=== PATIENT | female | born 1970 | race Caucasian/White ===

== ENCOUNTER 2017-01-08 16:16 | Inpatient (IN) | payer BC, OTHER ==
--- NOTE | ~2017-01-08 | EKG ---
PATIENT: DARCIE AVITIA UNIT #: [id number] Ventricular Rate: 92 BPM Atrial Rate: 92 BPM P-R Interval: 210 ms QRS Duration: 176 ms Q-T Interval: 442 ms QTC Calculation(Bezet): 546 ms P [place]: 57 degrees Calculated R [place]: -21 degrees Calculated T [place]: 48 degrees Diagnosis Line: Sinus rhythm with 1st degree A-V block Diagnosis Line: Possible Left atrial enlargement Diagnosis Line: Left bundle branch block Diagnosis Line: Abnormal ECG Diagnosis Line: When compared with ECG of 24-JUN-2009 15:58, Diagnosis Line: Left bundle branch block is now Present Diagnosis Line: Minimal criteria for Anterior infarct are no Diagnosis Line: longer Present Diagnosis Line: Confirmed by LETICIA GARCIA MD ([id number]) on 01/09/2017 Diagnosis Line: 5:46:43 AM INTERPRETING MD: RADHA UMAÑA
--- NOTE | ~2017-01-08 | EKG ---
PATIENT: DARCIE AVITIA UNIT #: [id number] Ventricular Rate: 62 BPM Atrial Rate: 62 BPM P-R Interval: 256 ms QRS Duration: 178 ms Q-T Interval: 566 ms QTC Calculation(Bezet): 574 ms P [place]: 38 degrees Calculated R [place]: -38 degrees Calculated T [place]: 130 degrees Diagnosis Line: Sinus rhythm with 1st degree A-V block Diagnosis Line: Left axis deviation Diagnosis Line: Left bundle branch block Diagnosis Line: Abnormal ECG Diagnosis Line: When compared with ECG of 08-JAN-2017 16:00, Diagnosis Line: Vent. rate has decreased BY 30 BPM Diagnosis Line: T wave inversion now evident in Lateral leads Diagnosis Line: Confirmed by LETICIA GARCIA MD ([id number]) on 01/10/2017 Diagnosis Line: 7:05:43 PM INTERPRETING MD: RADHA UMAÑA
--- NOTE | ~2017-01-08 | CR72 ---
[facility] A Service of [facility] [place] RADIOLOGY TEXT RESULTS PATIENT: DARCIE AVITIA LOCATION: [facility] 569-01 : [birth year] UNIT #: [id number] AGE: [address]: Darrion Bianchi MD SEX: F ORDER DR: [id number] [facility] [address] [facility]. [place], [place] [address] [id number] MR#: [id number] Acc #: [id number] NAME: DARCIE AVITIA : 1970 SEX: F STUDY DATE/TIME: 01/08/2017 17:06 UNIT: [facility] ROOM: [facility] STUDY DESCRIPTION: CR Chest Single View Portable Attending Physician: Darrion Bianchi M.D. Ordering Physician: Florencia Denson M.D. Primary Care Physician: Primary Care Physician No MEDICAL IMAGING REPORT This report is preliminary unless electronic signature is present EXAM Portable chest 1 view, 01/08/2017 COMPARISON 06/24/2009 CLINICAL HISTORY Chest pain, short or air, cough and congestion for 1 day. FINDINGS There is [id number] cardiomegaly, but there is no infiltrate, effusion, pneumothorax or specific nodule. Dictated by... Scott Peterson M.D. THIS IS AN ELECTRONICALLY VERIFIED REPORT Scott Peterson M.D. at 01/09/2017 3:54 PM JOSE A/dl TD: 01/08/2017 21:44 JOB #: [id number] MEDICAL IMAGING REPORT Page 1 of 1 COPY
--- NOTE | ~2017-01-08 | A ---
[facility] Nutrition Therapy DATE: 01/10/17 Patient: DARCIE AVITIA Physician: MONIQUE Address: [email or web address] Room/Bed: [address] [place] [address], [facility], Zip: [place] [phone] Admit Date: 01/08/17 Date of : [birth year] Height: 5 6 Weight: 198 90.2 NUTRITIONAL ASSESSMENT: REASON: CONSULT RE: DM EDUCATION PT IS 46 Y.O. FEMALE ADMITTED FOR ABNORMAL LABS HT: 5'6", WT: 197# (90 KG), BMI: 31.8 RD PROVIDED WRITTEN AND VERBAL CC DIET EDUCATION. RD PROVIDED LIST OF FOODS TO AVOID/LIMIT AND FOODS TO EAT MORE OFTEN. RD ALSO EMPHASIZED IMPORTANCE OF CONSUMING CONSISTENT BALANCED MEALS + LIMITING SUGAR-SWEETENED BEVERAGES. PT REPORTS DRINKING DIET SODA DAILY, WILLING TO CUT BACK AND DRINK MORE WATER. PT ALSO STATES SHE LOVES POTATOES AND PASTA. RD EMPHASIZED IMPORTANCE OF PORTION CONTROL. PT DEMONSTRATED UNDERSTANDING OF THE TOPIC. PT REPORTED NO DIET QUESTIONS AT THIS TIME. RD TO REMAIN AVAILABLE. RD NOTIFIED PT ABOUT [facility] FOR [facility]IDE REFERRAL. RECOMMENDATIONS: 1. ONCE MEDICALLY FEASIBLE, ADVANCE DIET TOLERATED TO CC+HH -ENCOURAGE COMPLIANCE OF CURRENT DIET ORDER 2. RE-CONSULT RD IF FURTHER DIET EDUCATION REQUESTED/NEEDED RD WILL F/U PER PROTOCOL Respectfully, TREVON BARGER MS, RD, LD Food and Nutrition[facility] cc: client file
--- NOTE | ~2017-01-08 | CO ---
Unit #: [id number] #: [id number] Patient: DARCIE AVITIA [id number] [address] [address] [id number] I MR#: [id number] NAME: DARCIE AVITIA ROOM: 569 Age: 46 Sex: F Admission Date: 01/08/2017 : 1970 Attending Physician: Darrion Bianchi M.D. Primary Care Physician: No Primary Care Physician CONSULTATION REPORT REASON FOR CONSULTATION Management of diabetes. HISTORY OF PRESENT ILLNESS The patient is a 46-year-old female with history of hypertension, hyperlipidemia, diabetes for 15 years on Metformin, Glyburide and hypothyroidism, admitted to the Cardiology Service with chest pain with a non-ST elevation VA. The patient has diabetes for 15 years and was well controlled on Metformin and Glyburide until last March. The patient lost insurance and then the patient was off of the medications. The patient was found to have uncontrolled diabetes at the time of admission with the sugars in the range of three hundreds. The patient's hemoglobin A1C is 10.9. 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 The patient denies any complications from the diabetes in the past. PAST MEDICAL HISTORY History of hypertension, hyperlipidemia, diabetes, hypothyroidism. PAST SURGICAL HISTORY History of oophorectomy right side, , hysterectomy. SOCIAL HISTORY No history of smoking, alcohol or illicit drug abuse. FAMILY HISTORY Reviewed and none. ALLERGIES Sulfa. HOME MEDICATIONS 1. Glucophage. 2. Neurontin. 3. Glucotrol. 4. Topamax. 5. Percocet. 6. Hydrocodone. 7. Zithromax. REVIEW OF SYSTEMS A 14-point review of systems was performed and only pertinent positives are described above. Remaining are negative. Unit #: [id number] #: [id number] Patient: DARCIE AVITIA PHYSICAL EXAMINATION GENERAL APPEARANCE: The patient is lying on bed, not in acute distress. VITAL SIGNS: Temperature 97.6. Pulse 71. Respiration 22. Blood pressure 133/95. HEENT: Head: Atraumatic, normocephalic. ENT: Pupils equal, round and reactive to light and accommodation. Extraocular movements are intact. NECK: Supple. LUNGS: Clear to auscultation bilaterally. HEART: Regular rate and rhythm. Positive for murmur. ABDOMEN: Soft. Positive bowel sounds. EXTREMITIES: No cyanosis. No clubbing. NEUROLOGIC: Alert, awake, oriented. No gross focal motor deficit. DIAGNOSTIC STUDIES LABORATORY: pH 7.4, pCO2 37, pO2 79.2, bicarb 23.6. Glucose 325, BUN 22, creatinine 0.8, sodium 135, potassium 4.1, chloride 99, bicarb 26, calcium 9.3, total protein 8, AST 20, ALT 31, alkaline phosphatase 98. Troponin 0.56. Hemoglobin A1C 10.9. Cholesterol 206, triglycerides 218, LDL 130, HDL 32. WBC 12.2, hemoglobin 15.1, hematocrit 49.3, platelets 240. IMAGING: Chest x-ray shows there is mild to moderate cardiomegaly but there is no infiltrate, effusion, pneumothorax or specific nodule. ASSESSMENT 1. Non-ST elevation VA. 2. Uncontrolled diabetes. 3. Obesity. PLAN The patient is awaiting the cardiac cath tomorrow and continue with the medial management and started the sliding scale and restart the Glucophage and Glyburide at the time of discharge. Continue with the statin and further recommendations will follow as more lab results are available. Dictated by... Sharifa Ty TD: 01/09/2017 12:51 JOB #: [id number] CONSULTATION REPORT Page 1 of 1 X X CONSULTATION REPORT
--- NOTE | ~2017-01-08 | HP ---
Unit #: [id number] #: [id number] Patient: DARCIE AVITIA [id number] [address] [place], [place] [address] [id number] I MR#: [id number] NAME: DARCIE AVITIA ROOM: 569 Age: 46 Sex: F Admission Date: 01/08/2017 : 1970 Attending Physician: Darrion Bianchi M.D. Primary Care Physician: Emily Arredondo M.D. HISTORY AND PHYSICAL HISTORY OF PRESENT ILLNESS This is a 46-year-old white female who went for a job physical and was found to have elevated blood pressure and glucose levels. She was told to go to [facility] for further evaluation. At the [facility], her blood pressure was 142/100 mmHg. Blood glucose per labs was 444. She was then sent to the emergency room for further management. The patient has known hypertension and diabetes, but because of no insurance and limited resources, she stopped taking all her medications in March 2016. She said she has frequent "panic attacks" where she has shortness of breath, dizziness, and substernal chest tightness that is nonradiating to her neck, arm, or jaw. She reports dyspnea on extreme exertion. She has occasional leg edema. She has been under "a lot of" stress recently. She has been depressed about her father's . Her last episode of chest pain was this morning. She came to the emergency room for evaluation where her initial troponin was 0.21. Electrocardiogram showed a left bundle branch block which is new from previous EKG in 2008. Chest x-ray denoted cardiomegaly but no heart failure. Her electrolytes were within normal limits. Blood glucose was elevated at 325. She has had no previous cardiac history or workup. Her risk factors include hypertension, hyperlipidemia, and diabetes. No history of nicotine abuse. PAST MEDICAL HISTORY 1. Hypertension. 2. Hyperlipidemia. 3. Diabetes mellitus type 2. 4. Hypothyroidism with multinodular goiter. 5. Panic attacks. 6. Depression. 7. Obesity. 8. Lifelong nonsmoker. PAST SURGICAL HISTORY 1. Hysterectomy with oophorectomy. 2. section. SOCIAL HISTORY The patient is . 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 She has never smoked and denies illicit drug and alcohol use. FAMILY HISTORY Father at age 79 from congestive heart failure. Mother from a stroke. Unit #: [id number] #: [id number] Patient: DARCIE AVITIA. HOME MEDICATIONS No current medications. REVIEW OF SYSTEMS CONSTITUTIONAL: Negative for fever or chills. Reports no weight gain or weight loss. HEENT: No headache, hearing or vision changes, or difficulty with swallowing. Positive for dizziness. CARDIOVASCULAR: Has chest discomfort as described in the History of Present Illness. Has occasional palpitations. No paroxysmal nocturnal dyspnea or orthopnea. Denies syncope or near syncope. RESPIRATORY: Positive for dyspnea on exertion. No cough or hemoptysis. GASTROINTESTINAL: No abdominal pain, nausea, or vomiting. No constipation or melena. EXTREMITIES: Negative for lower extremity edema. PHYSICAL EXAMINATION VITAL SIGNS: Blood pressure 154/110, heart rate 100, and temperature 98.2. BMI 21. GENERAL: This is a pleasant, 46-year-old, mildly obese young female who is in no acute respiratory distress. NEUROLOGIC: She is awake, alert, and oriented. There are no focal weaknesses. NECK: Trachea is midline. No thyromegaly or lymphadenopathy. No jugular venous distention. HEART: S1 and S2 with heart sounds normal. No murmurs and no rubs or clicks. Regular rate and rhythm. LUNGS: Clear to auscultation without rales, rhonchi, or wheezing. ABDOMEN: Soft and nontender with bowel sounds present. EXTREMITIES: Without leg edema. SKIN: Warm and dry. DIAGNOSTIC STUDIES LABORATORY: Hemoglobin 16.1, hematocrit 49.3, platelet count 240,000, and white count 12.2. Sodium 135, potassium 4.1, BUN 22, creatinine 0.8, and glucose 325. TSH 0.75. Troponin 0.21. IMAGING: Chest x-ray shows cardiomegaly but no active disease. CARDIOLOGY: EKG normal sinus rhythm with a rate of 92 beats per minute with left bundle branch block, left (1) axis deviation, poor R-wave progression, and first degree AV block. IMPRESSION 1. Acute coronary syndrome. 2. Uncontrolled hypertension. 3. Uncontrolled diabetes mellitus type 2. 4. New left bundle branch block. 5. Obesity. 6. History of hypothyroidism. PLAN 1. The patient's chest pain may be ischemic in origin. Will continue to trend cardiac enzymes and troponin to further rule out myocardial Unit #: [id number] #: [id number] Patient: DARCIE AVITIA infarction. 2. Electrocardiogram shows new left bundle branch block not seen on previous EKG. May be rate related. 3. Cardiomegaly is noted on chest x-ray but no evidence of heart failure. 4. Recommend cardiac catheterization to evaluate coronary anatomy. This has been discussed with the patient and she is agreeable. 5. Anticoagulate with aspirin and Lovenox. 6. Control blood pressure with beta kellen and DORCAS inhibitor. 7. Will start her on sliding scale insulin. Will have HIPS to see the patient for diabetes management. 8. Lipid profile will be obtained. Will start on lipid-lowering agent with high-intensity statin. 9. Will obtain echocardiogram to evaluate left ventricular systolic function given cardiomegaly on chest x-ray. Dictated by Hoang Jaramillo A.P.R.N. for Sharifa Cool/alexander TD: 01/09/2017 18:44 JOB #: [id number] HISTORY AND PHYSICAL Page 1 of 1 X Hoang Jaramillo APRN HISTORY AND PHYSICAL
--- NOTE | ~2017-01-08 | DS ---
Unit #: [id number] #: [id number] Patient: DARCIE AVITIA [id number] [address] [address] [id number] I MR#: [id number] NAME: DARCIE AVITIA ROOM: 569 Age: 46 Sex: F Admission Date: 01/08/2017 : 1970 Discharge Date: 01/11/2017 Attending Physician: Darrion Bianchi M.D. Primary Care Physician: No Primary Care Physician DISCHARGE SUMMARY DISCHARGE DIAGNOSES 1. Non-ST elevation myocardial infarction with peak troponin of 0.56. 2. Nonischemic cardiomyopathy with an ejection fraction of less than 10%. 3. A 2-D echocardiogram, 01/09/2017, shows an ejection fraction equal to or less than 10%. Mild to moderately dilated left atrium. Mild mitral regurgitation. Mild tricuspid regurgitation. Right ventricular systolic pressure of 45 mmHg. 4. Cardiac catheterization, 01/10/2017, which shows angiographically normal coronaries and ejection fraction of 10 to 15%. Severe global hypokinesis of the left ventricle. 5. Uncontrolled essential hypertension. 6. Hyperlipidemia. 7. Uncontrolled diabetes mellitus type 2. 8. New left bundle branch block. 9. Escherichia coli urinary tract infection. 10. Obesity. 11. Hypomagnesemia. DISCHARGE MEDICATIONS 1. Lopressor 50 mg b.i.d. 2. Lipitor 20 mg q.h.s. 3. Lisinopril 20 mg daily. 4. Levemir 5 units subcu b.i.d. 5. Aspirin 81 mg daily. 6. Spironolactone 12.5 mg b.i.d. 7. Lasix 20 mg daily. 8. Keflex 500 mg b.i.d. x7 days. HOSPITAL COURSE This is a 46-year-old white female who went for a job physical and was found to have elevated blood glucose and hypertension. She was sent to the emergency room for evaluation where she had an initial troponin of 0.21. Upon further questioning, the patient had what she thought was panic attacks where she had shortness of breath and chest tightness. Her troponin further josette to a peak of 5.6. We ruled her in for an acute non-ST elevation myocardial infarction. Her EKG showed left bundle branch block that was not cited on EKG in 2008. The patient stopped taking her antihypertensive medications as well as her diabetic medications in March of last year because of loss of insurance. She was started on a beta kellen, DORCAS inhibitor, aspirin and Lovenox. Fasting lipid profile was obtained which showed the patient to have elevated cholesterol and triglycerides level. She was started on high intensity high dose statin. Cardiac catheterization was recommended for which the patient was agreeable. Prior to the cardiac catheterization, echocardiogram revealed Unit #: [id number] #: [id number] Patient: DARCIE AVITIA severe left ventricular systolic dysfunction where her ejection fraction was less than 10%. She had no evidence of acute heart failure on examination. There was mild elevation of BNP of 532. She was started on fluid restriction with a 2 g sodium diet. Cardiac catheterization revealed no coronary artery disease. Her nonischemic cardiomyopathy is most likely secondary to uncontrolled hypertension. Her blood pressure stabilized with the addition of antihypotensive medicines. On admission, glucose levels were elevated, 325. The patient was started on sliding scale insulin initially. HIPS saw the patient for diabetes management. Levemir 5 units subcu was given b.i.d. Sliding scale was continued. Her blood glucose levels stabilized. She was also found to have evidence of urinary tract infection per UA. Cultures were positive for E. coli. Urinary tract infection was treated with IV Rocephin. At discharge, the patient will continue on Keflex 500 mg b.i.d. for seven days. Diabetic diet instructions were given to the patient by the electronic device monitor. Today, the patient is doing well. Her right radial site is feeling well. She has no shortness of breath. Magnesium level slightly low at 1.7. She will be treated as an outpatient for magnesium replacement. She is to start on daily regimen with Lasix. She remains euvolemic. The oncology social work is to see the patient prior to discharge to obtain the cost of medicine and provide the patient a list of PCPs to follow. Nursing staff has given instructions of self administration of insulin. Her heart rate and blood pressure remain stable. She is stable for discharge today. PHYSICAL EXAMINATION VITAL SIGNS: Blood pressure 143/104. Heart rate 72. Temperature 98.2. CHEST: With diminished breath sounds, otherwise, clear. HEART: S1, S2 with regular rate and rhythm. ABDOMEN: Soft with bowel sounds present. EXTREMITIES: Without leg edema. Right radial without hematoma or bruising. DIAGNOSTIC STUDIES LABORATORY: Glucose 152, BUN 17, creatinine 0.7, sodium 138, potassium 4.5. Cholesterol 206, triglycerides 218, LDL 130, HDL 32. TSH 0.5. Urine culture positive for E. coli. CONSULTATIONS HIPS for medical management. DISCHARGE INSTRUCTIONS 1. The patient will be discharged home today. 2. Follow up with a PCP of her choice in five to seven days. 3. Follow up with Dr. Bianchi on January at 2:15 p.m. 4. The patient will continue on fluid and sodium restriction with 1800 mL per day fluid restriction, 2 g sodium diet. 5. CHF education has been given. 6. Cardiac Rehab saw the patient prior to discharge and she is scheduled for orientation on 01/26/2017 at [facility]. 7. Continue magnesium oxide for 48 hours then discontinue. 8. Continue oral diuretics with Aldactone and furosemide. She will be discharged home on beta kellen, DORCAS inhibitor and statin. 9. The patient has been instructed self administration of insulin. Levemir will be continued at home. The oncology social work to confirm ability to afford Levemir prior to discharge. No Metformin secondary Unit #: [id number] #: [id number] Patient: DARCIE AVITIA to 48 hours post cath. 10. Keflex will be continued for seven days and then discontinued for urinary tract infection. Dictated by... Honag Jaramillo A.P.R.N. for Sharifa Cool/cheryl TD: 01/13/2017 13:27 JOB #: [id number] DISCHARGE SUMMARY Page 1 of 1 X Hoang Jaramillo APRN DISCHARGE SUMMARY
--- NOTE | ~2017-01-08 | EKG ---
PATIENT: DARCIE AVITIA UNIT #: [id number] Ventricular Rate: 64 BPM Atrial Rate: 64 BPM P-R Interval: 246 ms QRS Duration: 182 ms Q-T Interval: 528 ms QTC Calculation(Bezet): 544 ms P [place]: 45 degrees Calculated R [place]: -33 degrees Calculated T [place]: 127 degrees Diagnosis Line: Sinus rhythm with 1st degree A-V block Diagnosis Line: Left axis deviation Diagnosis Line: Left bundle branch block Diagnosis Line: Abnormal ECG Diagnosis Line: When compared with ECG of 09-JAN-2017 05:46, Diagnosis Line: (unconfirmed) Diagnosis Line: No significant change was found Diagnosis Line: Confirmed by LETICIA GARCIA MD ([id number]) on 01/10/2017 Diagnosis Line: 10:47:39 PM INTERPRETING MD: RADHA UMAÑA
[2017-01-08 16:00] LABS: BASOPHIL# 0.1 X10e3 (0-0.3); BASOPHIL% 0.6 % (0-2.5); EOSINOPHIL# 0.1 X10e3 (0-0.7); EOSINOPHIL% 0.8 % (0.0-7.0); HEMATOCRIT 49.3 % (35.0-45.0); HEMOGLOBIN 16.1 gm/dL (12.0-16.0); LYMPHOCYTE# 2.6 X10e3 (1.0-3.5); LYMPHOCYTE% 21.1 % (17.0-45.0); MEAN CELL VOLUME 81.9 FL (83-96); MEAN CORPUSCULAR HEMOGLOBIN 26.8 PG (28-34); MEAN CORPUSCULAR HGB CONC 32.7 g/dL (30-36); MEAN PLATELET VOLUME 10.2 FL (6.5-11.5); MONOCYTE# 0.8 X10e3 (0-1.0); MONOCYTE% 6.1 % (3.0-12.0); NEUTROPHIL# 8.7 X10e3 (1.5-7.1); NEUTROPHIL% 71.4 % (40-75); PLATELET COUNT 240 X10e3 (140-420); RED BLOOD COUNT 6.02 X10e (3.90-5.30); RED CELL DISTRIBUTION WIDTH 14.3 % (11.0-15.5); WHITE BLOOD COUNT 12.2 X10e3 (4.0-10.5)
[2017-01-08 16:01] LABS: DIFF IND NO
[~2017-01-08 16:16] MED LIST: ANSAID100 MG PO; GLUCOTROL PO; HYDROCODONE-GU480 ML PO; METFORMIN PO; NEURONTIN PO; PERCOCET5/325 PO; TOPAMAX PO; ZITHROMAX PO
[2017-01-08 16:21] LABS: ARTERIAL BLD GAS O2 SATURATION 95.1 % (90.0-100.0); ARTERIAL BLOOD GAS CARBOXY HB 0.8 %sat (0.0-9.0); ARTERIAL BLOOD GAS HCO3 23.6 mmol/L; ARTERIAL BLOOD GAS MET HB 0.6 %sat (0.0-2.0); ARTERIAL BLOOD GAS PCO2 37.5 mmHg (35.0-45.0); ARTERIAL BLOOD GAS pH 7.408 (7.350-7.450)
[2017-01-08 16:21] LABS: ALBUMIN SERUM 4.2 g/dL (3.5-5.0); BILIRUBIN, DIRECT 0.1 mg/dL (0.0-0.2); BILIRUBIN,INDIRECT 0.8 mg/dL (0.0-0.9); BILIRUBIN,TOTAL 0.9 mg/dL (0.2-2.0); BUN/CREATININE RATIO 27.5; CALCIUM SERUM 9.3 mg/dL (8.4-10.2); CREATININE SERUM 0.8 mg/dL (0.6-1.4); GLOM FILT RATE Estimated 87.9 mL/min (>60); POTASSIUM 4.1 mmol/L (3.5-5.1)
[2017-01-08 16:24] LABS: ARTERIAL BLOOD GAS ALLEN TEST NORMAL; ARTERIAL BLOOD GAS ART SITE RIGHT RADIAL; ARTERIAL BLOOD GAS DELIVERY ROOM AIR; ARTERIAL BLOOD GAS PO2 79.6 mmHg (80.0-100); ARTERIAL DRAW? YES
[2017-01-08 16:27] LABS: URINE SOURCE CLEAN CATCH
[2017-01-08 16:43] LABS: POC - CKMB 1.6 ng/mL (0.0-7.9); POC - TROPONIN 0.21 ng/mL (<=0.05)
[2017-01-08 17:00] LABS: AMPHETAMINE NEG (NEG); BARBITURATES NEG (NEG); BENZODIAZEPINES NEG (NEG); COCAINE NEG (NEG); MARIJUANA NEG (NEG); OPIATES NEG (NEG); TRICYCLIC ANTIDEPRESSANTS NEG (NEG); U METHADONE NEG (NEG)
[2017-01-08 17:01] LABS: CULTURE INDICATED? YES; U HYALINE CASTS AUWI 0-2 /[LPF]; URBCS1 AUWI 0-2 /[HPF] (0-2); URINE APPEARANCE CLOUDY; URINE BACTERIA AUWI 4+ (NEGATIVE); URINE BILIRUBIN NEG (NEG); URINE BLOOD 1+ (NEG); URINE COLOR YELLOW; URINE GLUCOSE >1000 MG/DL (NEG); URINE KETONE TRACE (NEG); URINE LEUKOCYTE ESTERASE TRACE (NEG); URINE NITRATE NEG (NEG); URINE PROTEIN 1+ (NEG); URINE SPECIFIC GRAVITY 1.028 (1.003-1.035); URINE SQUAMOUS EPITHELIAL CELL MOD /[HPF]
[2017-01-08] MEDS ORDERED: NO MEDICATIONS (19:38)
[2017-01-08 22:05] LABS: CK TOTAL 22 IU/L (26-140)
[2017-01-09 04:18] LABS: CK TOTAL 22 IU/L (26-140)
[2017-01-09 04:38] LABS: CHOLESTEROL 206 mg/dL (0-200); HDL CHOLESTEROL 32 mg/dL (35-95); LDL CHOLESTEROL 130 mg/dL (-130); LDL/HDL RATIO 4 RATIO (0-4); TRIGLYCERIDES 218 mg/dL (10-160)
[2017-01-10 07:20] LABS: BASOPHIL# 0.1 X10e3 (0-0.3); BASOPHIL% 0.7 % (0-2.5); EOSINOPHIL# 0.1 X10e3 (0-0.7); EOSINOPHIL% 1.8 % (0.0-7.0); HEMATOCRIT 42.8 % (35.0-45.0); HEMOGLOBIN 13.7 gm/dL (12.0-16.0); LYMPHOCYTE# 2.6 X10e3 (1.0-3.5); LYMPHOCYTE% 34.2 % (17.0-45.0); MEAN CORPUSCULAR HEMOGLOBIN 26.6 PG (28-34); MONOCYTE# 0.4 X10e3 (0-1.0); MONOCYTE% 5.7 % (3.0-12.0); NEUTROPHIL# 4.5 X10e3 (1.5-7.1); NEUTROPHIL% 57.6 % (40-75); PLATELET COUNT 166 X10e3 (140-420); RED BLOOD COUNT 5.16 X10e (3.90-5.30); RED CELL DISTRIBUTION WIDTH 14.2 % (11.0-15.5); WHITE BLOOD COUNT 7.7 X10e3 (4.0-10.5)
[2017-01-10 07:21] LABS: DIFF IND NO
[2017-01-10 07:26] LABS: INR 1.1; PARTIAL THROMBOPLASTIN TIME 29.1 SECONDS (23.5-31.3); PROTHROMBIN TIME (PATIENT) 11.5 SECONDS (9.6-11.5)
[2017-01-10 08:08] LABS: BUN/CREATININE RATIO 27.14; CALCIUM SERUM 8.6 mg/dL (8.4-10.2); CREATININE SERUM 0.7 mg/dL (0.6-1.4); GLOM FILT RATE Estimated 103.2 mL/min (>60); POTASSIUM 4.5 mmol/L (3.5-5.1)
[2017-01-11 07:44] LABS: BUN/CREATININE RATIO 24.28; CALCIUM SERUM 8.8 mg/dL (8.4-10.2); CREATININE SERUM 0.7 mg/dL (0.6-1.4); GLOM FILT RATE Estimated 103.2 mL/min (>60); MAGNESIUM 1.7 mg/dL (1.6-3.0); POTASSIUM 4.5 mmol/L (3.5-5.1)
[2017-01-11] MEDS ORDERED: TOPROL XL 50 MG50 MG PO (11:39)
[2017-01-11] MEDS ORDERED: LIPITOR20 MG PO (11:39)
[2017-01-11] MEDS ORDERED: LISINOPRIL20 MG PO (11:39)
[2017-01-11] MEDS ORDERED: CHEWABLE ASPIRI81 MG PO (11:40)
[2017-01-11] MEDS ORDERED: ALDACTONE PO (11:41)
[2017-01-11] MEDS ORDERED: LASIX20 MG PO (11:41)
[2017-01-11] MEDS ORDERED: MAGOX 400400 MG PO (11:43)
[2017-01-11] MEDS ORDERED: LEVEMIR100 UNITS/ SUBQ (15:04)
[2017-01-11] MEDS ORDERED: ASPIRIN81 MG PO (15:05)
[2017-01-11] MEDS ORDERED: KEFLEX500 MG PO (15:07)
[2017-01-11] MEDS ORDERED: LOPRESSOR PO (15:40)
== END 2017-01-11 17:34 | disposition home or self-care (01) | DRG 281 ==
LOC: CED 16:16 → CEDOF 18:20 → C5C 20:27
PROVIDERS: Internal Medicine Cardiovascular Disease; Nurse Practitioner; Student in an Organized Health Care Education/Training Program
PROC: B246ZZZ Ultrasonography of Right and Left Heart (ICD-10-PCS; 2017-01-09)
PROC: 4A023N7 Measurement of Cardiac Sampling and Pressure, Left Heart, Percutaneous Approach (ICD-10-PCS; principal; 2017-01-10)
PROC: B211YZZ Fluoroscopy of Multiple Coronary Arteries using Other Contrast (ICD-10-PCS; 2017-01-10)
PROC: B215YZZ Fluoroscopy of Left Heart using Other Contrast (ICD-10-PCS; 2017-01-10)
DX: I21.4 Non-ST elevation (NSTEMI) myocardial infarction (principal); I42.8 Other cardiomyopathies; E11.65 Type 2 diabetes mellitus with hyperglycemia; I08.1 Rheumatic disorders of both mitral and tricuspid valves; E83.42 Hypomagnesemia; N39.0 Urinary tract infection, site not specified; I10 Essential (primary) hypertension; E78.5 Hyperlipidemia, unspecified; Z79.84 Long term (current) use of oral hypoglycemic drugs; T38.3X6A Underdosing of insulin and oral hypoglycemic [antidiabetic] drugs, initial encounter; T46.5X6A Underdosing of other antihypertensive drugs, initial encounter; Z91.120 Patient's intentional underdosing of medication regimen due to financial hardship; Y92.009 Unspecified place in unspecified non-institutional (private) residence as the place of occurrence of the external cause; I44.7 Left bundle-branch block, unspecified; B96.20 Unspecified Escherichia coli [E. coli] as the cause of diseases classified elsewhere; E66.9 Obesity, unspecified; Z68.31 Body mass index [BMI] 31.0-31.9, adult; E03.9 Hypothyroidism, unspecified; Z90.710 Acquired absence of both cervix and uterus; Z88.2 Allergy status to sulfonamides
CPT/HCPCS: 36415; 36600; 71010; 80048; 80061; 80076; 80307; 81003; 82550; 82553; 82803; 82947; 83036; 83735; 83880; 84443; 84484; 85025; 85610; 85730; 87086; 87088; 87186; 93005; 93306; 96360; 99285; C1769; C1887; C1894; J0696; J1644; J1650; J1815; J2250; J3010